=== PATIENT | female | born 2000 | race African-American/Black ===

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

== ENCOUNTER 2018-01-26 15:19 | Emergency (ER) | payer OTHER ==
[~2018-01-26] VITALS: Ht 160 cm; Wt 57.9 kg
[~2018-01-26 15:19] MED LIST: IBUP-1050 PO
[2018-01-26 15:22] VITALS: TEMP 36.8; Ht 160 cm; Wt 57.9 kg
[2018-01-26] MEDS ORDERED: KETOROLAC TROMETHAMINE 30 MG/ML VIAL IV STA (17:03)
--- NOTE | 2018-01-26 17:13 | DIAGNOSTIC IMAGING REPORT ---
CHEST ONE VIEW PORTABLE CLINICAL HISTORY: Chest Pain COMPARISON STUDY: No previous studies for comparison. FINDINGS: Lung volumes are normal. Lungs are clear. No pneumothorax or pleural effusion is present. Cardiac size is normal. Mediastinal contours are normal. There is no evidence for pulmonary edema. There may be mild S-shaped curvature of the thoracolumbar spine. IMPRESSION: No acute cardiopulmonary findings. Electronically signed by: Nhan Rodríguez M.D. 01/26/2018 5:11 PM Dictated Date/Time: 01/26/2018 5:10 PM
[2018-01-26 17:22] LABS: BASO % 0.5 %; BASO ABS # 0.05 K/uL (0-0.2); EOS % 1.8 %; EOS ABS # 0.19 K/uL (0-0.5); HEMATOCRIT 36.2 % (37-47); HEMOGLOBIN 12.2 g/dL (12.0-16.0); IG# 0.03 K/uL (0.00-0.02); LYMPH % 25.6 %; LYMPH ABS # 2.64 K/uL (1.2-3.4); MEAN CELL VOLUME 87.7 fL (80-100); MEAN CORPUSCULAR HEMOGLOBIN 29.5 pg (25-34); MEAN CORPUSCULAR HGB CONC 33.7 g/dl (32-36); MEAN PLATELET VOLUME 9.6 fL (7.4-10.4); MONO % 4.5 %; MONO ABS # 0.46 K/uL (0.11-0.59); NEUT % 67.3 %; NEUT ABS # 6.94 K/uL (1.4-6.5); PLATELET COUNT 253 K/uL (130-400); RED CELL DISTRIBUTION WIDTH CV 12.4 % (11.5-14.5); RED CELL DISTRIBUTION WIDTH SD 40.1 fL (36.4-46.3); WHITE BLOOD COUNT 10.31 K/uL (4.8-10.8)
[2018-01-26] MEDS ORDERED: CRAN1CAP16 PO (17:31)
[2018-01-26] MEDS ORDERED: MULT-513 PO (17:31)
[2018-01-26] MEDS ORDERED: CLR10 PO (17:31)
[2018-01-26] MEDS ORDERED: IBUP-103 PO (17:31)
[2018-01-26 17:42] LABS: BLOOD UREA NITROGEN 12 mg/dl (7-18); CALCIUM 8.8 mg/dl (8.5-10.1); CARBON DIOXIDE 27 mmol/L (21-32); CREATININE 0.93 mg/dl (0.60-1.20); GLUCOSE 86 mg/dl (70-99); POTASSIUM 3.8 mmol/L (3.5-5.1); SODIUM 137 mmol/L (136-145)
[2018-01-26 17:47] LABS: CKMB 1.2 ng/ml (0.5-3.6)
[2018-01-26 18:06] VITALS: BP 138/98; PULSE 66; O2SAT 98
--- NOTE | 2018-01-26 20:10 | EMERGENCY ROOM VISIT NOTE ---
History Report prepared by Luisa: Jose Elias Bowling Under the Supervision of: Dr. Jassi Mendoza D.O. First contact with patient: 16:44 Chief Complaint: CHEST PAIN Stated Complaint: CHEST PAIN, LEFT-SIDED PAIN, TROUBLE BREATHING Nursing Triage Summary: Pt reports sharp left sided CP and SOB. Sudden onset. reports pain "isn't bad now, but was earlier". worse with deep breathing. +dizziness. denies BC History of Present Illness The patient is a 17 year old female who presents to the Emergency Room with complaints of sudden onset chest pain that began at 1430, 2 hours and 20 minutes ago. The patient states that the pain is primarily around her right breast. The symptoms are worsened with deep breathing and movement. She also notes feeling a little dizzy, and has had a cough since last week. Pain is a 5 out of 10. No other exacerbating or remitting factors. No trauma. She has not had any abdominal pain or weakness in her arms or legs. Patient denies any recent urinary burning, diabetes, hypertension, hyperlipidemia, CAD, history of sudden at a young age, and smoking. Patient denies swelling of calves, recent trips, history of immobilization or recent surgery, prior history of DVT , hemoptysis, history of malignancy, history of smoking, or control/ estrogen use. Source of History: patient Onset: 2 hours and 20 minutes ago Position: chest (left) Timing: other (sudden onset 2 hrs ago) Modifying Factors (Worsening): breathing, movement Associated Symptoms: No abdominal pain, No urinary symptoms, No weakness Review of Systems See HPI for pertinent positives & negatives. A total of 10 systems reviewed and were otherwise negative. Past Medical & Surgical Medical Problems: (1) No Known Active Medical Problems Family History Patient reports no known family medical history. Social History Smoking Status: Never Smoker Alcohol Use: none Drug Use: none Marital Status: single Housing Status: lives with roommate Occupation Status: student Current/Historical Medications Scheduled Cranberry (Vaccinium Macrocarp (Cranberry), 1 TAB PO DAILY Multivitamins/Minerals (Mvi With Minerals), 1 TAB PO DAILY Scheduled PRN Ibuprofen Tab (Advil), 400 MG PO DAILY PRN for Pain Loratadine (Claritin), 10 MG PO DAILY PRN for Seasonal Allergies Allergies Coded Allergies: No Known Allergies (Unverified , 07/05/17) Physical Exam Vital Signs Date Time Temp Pulse Resp B/P (MAP) Pulse Ox O2 Delivery O2 Flow Rate FiO2 01/26/18 18:06 66 20 138/98 98 01/26/18 18:00 66 20 138/98 98 01/26/18 17:34 65 01/26/18 17:19 71 20 136/93 Room Air 01/26/18 15:25 100 Room Air 01/26/18 15:22 36.8 78 20 157/96 100 Room Air Physical Exam GENERAL: Sitting up in bed, alert, well appearing, well nourished, no distress, non-toxic EYE EXAM: normal conjunctiva. OROPHARYNX: no exudate, no erythema, lips, buccal mucosa, and tongue normal and mucous membranes are moist NECK: supple, no nuchal rigidity, no adenopathy, non-tender CHEST: There is acute reproducible tenderness of the left anterior chest wall, worse with palpation and abduction of LUE. LUNGS: Clear to auscultation. Normal chest wall mechanics HEART: no murmurs, S1 normal and S2 normal ABDOMEN: abdomen soft, non-tender, normo-active bowel sounds, no masses, no rebound or guarding. BACK: Back is symmetrical on inspection and there is no deformity, no midline tenderness, no CVA tenderness. SKIN: no rashes and no bruising UPPER EXTREMITIES: upper extremities are grossly normal. LOWER EXTREMITIES: No pitting edema. Calves are equal NEURO EXAM: Normal sensorium, cranial nerves II-XII grossly intact, normal speech, no gross weakness of arms, no gross weakness of legs. Medical Decision & Procedures ER Provider Diagnostic Interpretation: Radiology results as stated below per my review and the radiologist's interpretation: CHEST ONE VIEW PORTABLE CLINICAL HISTORY: Chest Pain COMPARISON STUDY: No previous studies for comparison. FINDINGS: Lung volumes are normal. Lungs are clear. No pneumothorax or pleural effusion is present. Cardiac size is normal. Mediastinal contours are normal. There is no evidence for pulmonary edema. There may be mild S-shaped curvature of the thoracolumbar spine. IMPRESSION: No acute cardiopulmonary findings. Electronically signed by: Nhan Rodríguez M.D. 01/26/2018 5:11 PM Dictated Date/Time: 01/26/2018 5:10 PM Laboratory Results 01/26/18 17:10 Red Blood Count 4.13, Mean Corpuscular Volume 87.7, Mean Corpuscular Hemoglobin 29.5, Mean Corpuscular Hemoglobin Concent 33.7, Mean Platelet Volume 9.6, Neutrophils (%) (Auto) 67.3, Lymphocytes (%) (Auto) 25.6, Monocytes (%) (Auto) 4.5, Eosinophils (%) (Auto) 1.8, Basophils (%) (Auto) 0.5, Neutrophils # (Auto) 6.94, Lymphocytes # (Auto) 2.64, Monocytes # (Auto) 0.46, Eosinophils # (Auto) 0.19, Basophils # (Auto) 0.05 01/26/18 17:10 Test 01/26/18 17:10 White Blood Count 10.31 K/uL (4.8-10.8) Red Blood Count 4.13 M/uL (4.2-5.4) Hemoglobin 12.2 g/dL (12.0-16.0) Hematocrit 36.2 % (37-47) Mean Corpuscular Volume 87.7 fL (80-100) Mean Corpuscular Hemoglobin 29.5 pg (25-34) Mean Corpuscular Hemoglobin Concent 33.7 g/dl (32-36) Platelet Count 253 K/uL (130-400) Mean Platelet Volume 9.6 fL (7.4-10.4) Neutrophils (%) (Auto) 67.3 % Lymphocytes (%) (Auto) 25.6 % Monocytes (%) (Auto) 4.5 % Eosinophils (%) (Auto) 1.8 % Basophils (%) (Auto) 0.5 % Neutrophils # (Auto) 6.94 K/uL (1.4-6.5) Lymphocytes # (Auto) 2.64 K/uL (1.2-3.4) Monocytes # (Auto) 0.46 K/uL (0.11-0.59) Eosinophils # (Auto) 0.19 K/uL (0-0.5) Basophils # (Auto) 0.05 K/uL (0-0.2) RDW Standard Deviation 40.1 fL (36.4-46.3) RDW Coefficient of Variation 12.4 % (11.5-14.5) Immature Granulocyte % (Auto) 0.3 % Immature Granulocyte # (Auto) 0.03 K/uL (0.00-0.02) D-Dimer < 190 ug/L FEU (0-500) Anion Gap 3.0 mmol/L (3-11) Est Creatinine Clear Calc Drug Dose 80.5 ml/min Estimated GFR () 103.3 Estimated GFR (Non- 89.1 BUN/Creatinine Ratio 12.5 (10-20) Calcium Level 8.8 mg/dl (8.5-10.1) Total Creatine Kinase 175 U/L (26-192) Creatine Kinase MB 1.2 ng/ml (0.5-3.6) Creatine Kinase MB Ratio 0.7 (0-3.0) Troponin I < 0.015 ng/ml (0-0.045) Laboratory results per my review. Medications Administered Medications (Trade) Dose Ordered Sig/Sarahi Route Start Time Stop Time Status Last Admin Dose Admin Ketorolac Tromethamine (Toradol Inj) 30 mg NOW STAT IV 01/26/18 17:03 01/26/18 17:04 DC 01/26/18 17:17 30 MG ECG Per My Interpretation Indication: chest pain Rate (beats per minute): 88 Rhythm: normal sinus, sinus rhythm Findings: other (Normal [place], no PVCs) ED Course ED COURSE: Vital signs were reviewed and showed hypertensive vitals. The patients medical record was reviewed The above diagnostic studies were performed and reviewed. ED treatments and interventions as stated above. 1655: The patient was evaluated in room A12A. A complete history and physical examination was performed. 1703: Ordered Toradol 30 mg IV. 1758: Upon reevaluation, the patient is resting in bed. Her pain completely resolved with Toradol. I discussed my findings with the patient and she understands and agrees with the treatment plan. Based on the patients age, coexisting illnesses, exam and lab findings the decision to treat as an outpatient was made. The patient remained stable while under my care. The patient appeared well at the time of discharge. Medical Decision Differential diagnoses includes but is not limited to acute coronary syndrome, myocardial infarction, pericarditis, pulmonary embolus, aortic dissection, pneumonia, pneumothorax, musculoskeletal, shingles, esophageal. Patient is a 88-year-old female who presents the ER for chest pain which started around 230 this afternoon. Pain is clearly reproducible on exam and does change with movement of her left upper extremity. CBC along with BMP and troponin was negative. D-dimer was negative. Chest x-ray and EKG were unremarkable. Pain is clearly reproducible on exam and consequently did not repeat a troponin. She was given Toradol her symptoms significantly improved. She is discharged muscle skeletal chest pain follow-up with PCP as an outpatient. Discussed with Pt concerning signs and symptoms to watch out for. Pt was instructed to follow up with their PCP and discussed with the patient their option to return to the ED at anytime for persistent or worsening symptoms. The appropriate anticipatory guidance and out-patient management, including indications for return to the emergency department, were explained at length to the patient and understood. Medication Reconcilliation Current Medication List: was personally reviewed by me Blood Pressure Screening Patient's blood pressure: Elevated blood pressure Blood pressure disposition: Elevated BP felt to be situational Impression Primary Impression: Musculoskeletal chest pain Scribe Attestation The scribe's documentation has been prepared under my direction and personally reviewed by me in its entirety. I confirm that the note above accurately reflects all work, treatment, procedures, and medical decision making performed by me. Departure Information Dispostion Home / Self-Care Referrals [facility] (PCP) Forms HOME CARE DOCUMENTATION FORM, IMPORTANT VISIT INFORMATION Patient Instructions [facility] Additional Instructions Please follow up with your primary care doctor with in the next 24 hours. Any worsening of your symptoms, please return to the ED immediately. This includes any fevers greater than 100.4, worsening pain, chest pain, shortness breath, persistent nausea, vomiting, unable to eat or drink, or any other concerning signs or symptoms from your standpoint. Please take Tylenol or Motrin as needed for pain.
== END 2018-01-26 18:00 | disposition home or self-care (01) ==
LOC: C.EDB 15:20 → C.EDA 18:00
DX: R07.89 Other chest pain (principal); R03.0 Elevated blood-pressure reading, without diagnosis of hypertension; R42 Dizziness and giddiness; R05 Cough